=== PATIENT | male | born 1940 | race Caucasian/White ===

== ENCOUNTER 2019-12-04 12:11 | Observation (INO) | payer MEDICARE ==
[2019-12-04] MEDS ORDERED: Diltiazem 25 MG/5 ML SDV ONE (12:30)
[2019-12-04] MEDS ORDERED: Amiodarone 150 MG/3 ML SDV ONE (12:32)
[2019-12-04] MEDS ORDERED: Amiodarone 150 MG/3 ML SDV IVPUSH ONE (12:36)
[2019-12-04] MEDS ORDERED: Propofol 200 MG/20 ML SDV ONE (12:39)
--- NOTE | 2019-12-04 12:55 | EDM.PDOC ---
ED HPI GENERAL MEDICAL PROBLEM - General Chief Complaint: Cardiovascular Problem Stated Complaint: DIZZY SHORTNESS OF BREATH Time Seen by Provider: 12/04/19 12:15 Source of Information: Reports: Patient History Limitations: Reports: No Limitations - History of Present Illness INITIAL COMMENTS - FREE TEXT/NARRATIVE: This is an 78-year-old gentleman with a history of atrial fibrillation who presents with concerns of palpitations and fast heart rate. He has a history of A. fib and is managed on digoxin and metoprolol, reports that he took both these medications this morning. When he got up this morning he could feel that he was having some palpitations and his heart felt fast, this worsened throughout the morning while he was out golfing and he began to feel dizzy. When EMS initially arrived at his home today they found her to be in rate in the 140s, this ramped up into the 220s by time he arrived here at the hospital. The patient denies any dyspnea. He has no chest pain. He is otherwise been feeling well. - Related Data Allergies Allergy/AdvReac Type Severity Reaction Status Date / Time Sulfa (Sulfonamide Allergy Hives Verified 12/04/19 12:49 Antibiotics) Home Meds: Home Meds Cyanocobalamin (Vitamin B-12) [Cyanocobalamin Injection] 1,000 mcg IJ WEEKLY 12/04/19 [History] Digoxin 250 mg PO DAILY 12/04/19 [History] Glimepiride 2 mg PO DAILY 12/04/19 [History] Levothyroxine 100 mcg PO DAILY 12/04/19 [History] Metoprolol Succinate 100 mg PO BID 12/04/19 [History] Warfarin Sodium 4 mg PO ASDIRECTED 12/04/19 [History] lisinopriL [Lisinopril] 5 mg PO DAILY 12/04/19 [History] metFORMIN HCl [Metformin HCl] 1,000 mg PO BID 12/04/19 [History] ED ROS GENERAL - Review of Systems Review Of Systems: See Below Constitutional: Reports: No Symptoms HEENT: Reports: No Symptoms Respiratory: Reports: No Symptoms Cardiovascular: Reports: Palpitations Endocrine: Reports: No Symptoms GI/Abdominal: Reports: No Symptoms : Reports: No Symptoms Musculoskeletal: Reports: No Symptoms Skin: Reports: No Symptoms Neurological: Reports: No Symptoms Psychiatric: Reports: No Symptoms Hematologic/Lymphatic: Reports: No Symptoms Immunologic: Reports: No Symptoms ED EXAM, GENERAL - Physical Exam Exam: See Below Exam Limited By: No Limitations General Appearance: Alert, Mild Distress Ears: Normal External Exam Nose: Normal Inspection Throat/Mouth: Normal Inspection Head: Atraumatic, Normocephalic Neck: Normal Inspection Respiratory/Chest: Lungs Clear Cardiovascular: No Murmur, Tachycardia, Irregularly Irregular GI/Abdominal: Soft, Non-Tender Back Exam: Normal Inspection Extremities: Normal Inspection, No Pedal Edema Neurological: Alert, Oriented Psychiatric: Normal Affect, Normal Mood Skin Exam: Warm, Dry ED CARDIOLOGY PROCEDURES - Cardioversion Indication: Atrial Fibrillation with RVR Informed Consent Obtained: Yes Preparation: IV Access, Supplemental Oxygen, Monitor Pre-Procedure Sedation: Propofol Cardioversion Energy: 200J Sync Mode: Biphasic Number of Attempts: Other: (3 attempts: 150 j x1 followed by 200 j x2) Patient Condition Post Cardioversion: Unchanged Post Cardioversion EKG Reviewed: Yes (Persistent a-fib) Course - Vital Signs Last Recorded V/S: Last Vital Signs Temp 36.9 C 12/04/19 13:03 Pulse 99 12/04/19 13:03 Resp 12 12/04/19 13:03 BP 109/60 12/04/19 13:03 Pulse Ox 97 12/04/19 13:03 - Orders/Labs/Meds Orders: Active Orders 24 hr Category Date Time Status INR,PT,PROTHROMBIN TIME [COAG] Stat Lab 12/04/19 13:31 Ordered Amiodarone [Cordarone] 450 mg Med 12/04/19 12:45 Active Dextrose 5% in Water 241 ml IV ASDIRECTED Medication Orders Amiodarone HCl 450 mg/ (Dextrose/Water) 250 mls @ 33.333 mls/hr IV ASDIRECTED SANDY; Protocol Last Admin: 12/04/19 13:04 Dose: 1 mg/min, 33.333 mls/hr Documented by: MARIA A Labs: Laboratory Tests 12/04/19 12/04/19 Range/Units 12:52 12:52 WBC 7.1 (4.5-11.0) K/uL RBC 5.01 (4.30-5.90) M/uL Hgb 14.1 (12.0-15.0) g/dL Hct 44.0 (40.0-54.0) % MCV 88 (80-98) fL MCH 28 (27-31) pg MCHC 32 (32-36) % Plt Count 180 (150-400) K/uL Sodium 137 L (140-148) mmol/L Potassium 4.1 (3.6-5.2) mmol/L Chloride 99 L (100-108) mmol/L Carbon Dioxide 26 (21-32) mmol/L Anion Gap 16.1 H (5.0-14.0) mmol/L BUN 23 H (7-18) mg/dL Creatinine 1.1 (0.8-1.3) mg/dL Est Cr Clr Drug Dosing TNP Estimated GFR (MDRD) > 60 (>60) Glucose 177 H (74-106) mg/dL Calcium 8.4 L (8.5-10.1) mg/dL Magnesium 1.8 (1.8-2.4) mg/dL Total Bilirubin 1.0 (0.2-1.0) mg/dL AST 21 (15-37) U/L ALT 29 (12-78) U/L Alkaline Phosphatase 40 L (46-116) U/L Total Protein 6.6 (6.4-8.2) g/dL Albumin 3.6 (3.4-5.0) g/dL Globulin 3.0 (2.3-3.5) g/dL Albumin/Globulin Ratio 1.2 (1.2-2.2) Meds: Medications Generic Name Dose Route Start Last Admin Trade Name Freq PRN Reason Stop Dose Admin Amiodarone HCl 450 mg/ 250 mls @ 33.333 mls/hr 12/04/19 12:45 12/04/19 13:04 Dextrose/Water IV 1 mg/min ASDIRECTED SANDY 33.333 mls/hr Administration Protocol 1 MG/MIN Discontinued Medications Generic Name Dose Route Start Last Admin Trade Name Freq PRN Reason Stop Dose Admin Amiodarone HCl Confirm 12/04/19 12:32 12/04/19 12:43 Cordarone Administered 12/04/19 12:33 Not Given Dose 150 mg .ROUTE .STK-MED ONE Amiodarone HCl 150 mg 12/04/19 12:36 12/04/19 12:37 Cordarone IVPUSH 12/04/19 12:37 150 mg ONETIME ONE Administration Diltiazem HCl Confirm 12/04/19 12:30 12/04/19 12:43 Diltiazem Administered 12/04/19 12:31 Not Given Dose 25 mg .ROUTE .STK-MED ONE Propofol Confirm 12/04/19 12:39 Diprivan 20 Ml Administered 12/04/19 12:40 Dose 200 mg .ROUTE .STK-MED ONE - Re-Assessments/Exams Free Text/Narrative Re-Assessment/Exam: 78-year-old with history of A. fib, managed on digoxin and metoprolol, presents with concerns of rapid heart rate. Prehospital EKGs reviewed along with EKG here, rhythm is consistent with atrial fibrillation with RVR given its variable rate which had ramped up into the 220s by time the patient arrived in the ER. Given the patient was anticoagulated, and concerned that his rapid rate would degrade into an unstable rhythm, we elected to cardiovert him with the assistance of anesthesia. He underwent 3 cardioversions but this was unsuccessful in keeping him out of A. fib with RVR. Heart rate returned into the 220s, BPs were somewhat soft presumably largely due to sedation, so elected to load him with amiodarone. This successfully controlled his heart rate and they are now in the 90s. We are started on an amiodarone infusion. Basic blood work is pending to assess for electrolyte imbalance. 12/04/19 12:59 Free Text/Narrative Re-Assessment/Exam: Heart rate remains in the 80s and 90s on amiodarone infusion. Labs unremarkable. Admitted to the hospitalist for further management. 12/04/19 13:39 Departure - Departure Time of Disposition: 13:30 Disposition: Admitted As Inpatient 64 Clinical Impression: Atrial fibrillation with rapid ventricular response Referrals: Ovi Temple MD [Primary Care Provider] - Forms: ED Department Discharge Critical Care Note - Critical Care Note Total Time (mins): 33 Comments: Critical care time spent in the evaluation and treatment of rapid, life threatening arrhythmia Sepsis Event Note (ED) - Focused Exam Vital Signs: Vital Signs Temp Pulse Resp BP Pulse Ox 12/04/19 13:03 36.9 C 99 12 109/60 97 12/04/19 13:02 36.9 C 99 12 109/60 97 - My Orders Last 24 Hours: My Active Orders 12/04/19 12:45 Amiodarone [Cordarone] 450 mg Dextrose 5% in Water 241 ml IV ASDIRECTED 12/04/19 13:31 INR,PT,PROTHROMBIN TIME [COAG] Stat - Assessment/Plan Last 24 Hours: My Active Orders 12/04/19 12:45 Amiodarone [Cordarone] 450 mg Dextrose 5% in Water 241 ml IV ASDIRECTED 12/04/19 13:31 INR,PT,PROTHROMBIN TIME [COAG] Stat
--- NOTE | 2019-12-04 15:51 | PCM.HP.2 ---
H&P History of Present Illness - General Date of Service: 12/04/19 Admit Problem/Dx: Admission Diagnosis/Problem Admission Diagnosis/Problem Atrial fibrillation with rapid ventricular response Source of Information: Patient, Provider History Limitations: Reports: No Limitations - History of Present Illness Initial Comments - Free Text/Narative: CC: I was so dizzy HPI: Emmanuel presented to the emergency room by ambulance after an episode of sev ere dizziness and palpitations that started while he was golfing today. He reports that he has felt well recently with the exception that he has not been sleeping well because of occasionally restless legs at night. He has not had any recent difficulty with fevers, shortness of breath, palpitations or chest pain. No GI symptoms. He felt well when he woke up this morning. About usp through his round of golf he developed mild dizziness that built up over the next couple of holes before he was so dizzy he thought he was going to pass out. This was associated with palpitations. An ambulance was summoned and he was brought to the emergency room. Along the way he was noted to be in atrial fibrillation with rates in the 140s. In the emergency room he had rates that were higher than 200. 3 attempts were made at electrical cardioversion but these were unsuccessful. His blood pressures were on the very low side of normal following the attempt at cardioversion. The patient was then given a loading dose of amiodarone and started on an infusion with a significant improvement in his heart rate. He feels well again and does not have any palpitations. No chest pain or shortness of breath. Work-up in the emergency room has been reassuring other than the cardiac monitoring abnormalities. Labs are unremarkable. No evidence for infection or electrolyte abnormality. He will be admitted for further management of his paroxysmal atrial fibrillation. - Related Data Allergies/Adverse Reactions: Allergies Allergy/AdvReac Type Severity Reaction Status Date / Time Sulfa (Sulfonamide Allergy Hives Verified 12/04/19 12:49 Antibiotics) Home Medications: Home Meds Cyanocobalamin (Vitamin B-12) [Cyanocobalamin Injection] 1,000 mcg IJ WEEKLY 12/04/19 [History] Digoxin 250 mg PO DAILY 12/04/19 [History] Glimepiride 2 mg PO DAILY 12/04/19 [History] Levothyroxine 100 mcg PO DAILY 12/04/19 [History] Metoprolol Succinate 100 mg PO BID 12/04/19 [History] Warfarin Sodium 4 mg PO ASDIRECTED 12/04/19 [History] lisinopriL [Lisinopril] 5 mg PO DAILY 12/04/19 [History] metFORMIN HCl [Metformin HCl] 1,000 mg PO BID 12/04/19 [History] Past Medical History HEENT History: Reports: Cataract Cardiovascular History: Reports: Afib Gastrointestinal History: Reports: Cholelithiasis Musculoskeletal History: Reports: Fracture Other Musculoskeletal History: left arm fx X3 as child Endocrine/Metabolic History: Reports: Diabetes, Type II Hematologic History: Reports: B12 Deficiency - Infectious Disease History Infectious Disease History: Reports: Chicken Pox, Measles, Mumps - Past Surgical History HEENT Surgical History: Reports: Cataract Surgery GI Surgical History: Reports: Cholecystectomy Social & Family History - Family History Cardiac: Reports: Afib (mother and sisters) - Tobacco Use Smoking Status *Q: Former Smoker Years of Tobacco use: 10 Used Tobacco, but Quit: Yes Month/Year Tobacco Last Used: 01/1969 - Caffeine Use Caffeine Use: Reports: Coffee - Alcohol Use Alcohol Use History: No - Recreational Drug Use Recreational Drug Use: No H&P Review of Systems - Review of Systems: Review Of Systems: See Below Free Text/Narrative: A complete 12 point review of systems was obtained. Pertinent positives and negatives are noted in the history of present illness. All other systems were reviewed and were negative except as noted. Exam - Exam Exam: See Below - Vital Signs Vital Signs: Last Vital Signs Temp 36.9 C 12/04/19 13:03 Pulse 91 12/04/19 14:56 Resp 15 12/04/19 14:56 BP 116/65 12/04/19 14:56 Pulse Ox 97 12/04/19 14:56 - Exam Quality Assessment: No: Supplemental Oxygen General: Alert, Oriented, Cooperative. No: Mild Distress HEENT: Conjunctiva Clear, Mucosa Moist & [place] Neck: Supple, Trachea Midline. No: JVD Lungs: Clear to Auscultation, Normal Respiratory Effort Cardiovascular: Regular Rate, Irregular Rhythm. No: Systolic Murmur GI/Abdominal Exam: Normal Bowel Sounds, Soft, Non-Tender, No Distention Back Exam: Normal Inspection, Full Range of Motion Extremities: No Pedal Edema. No: Increased Warmth Peripheral Pulses: 2+: Dorsalis Pedis (L), Dorsalis Pedis (R) Skin: Warm, Dry Neuro Extensive - Mental Status: Alert, Oriented x3, Nl Response to Commands Neuro Extensive - Motor, Sensory, Reflexes: No: Dysarthria, Abnormal Motor, Tremor Psychiatric: Alert, Normal Affect - Patient Data Lab Results Last 24 hrs: Laboratory Results - last 24 hr 12/04/19 12/04/19 12/04/19 Range/Units 12:52 12:52 12:57 WBC 7.1 (4.5-11.0) K/uL RBC 5.01 (4.30-5.90) M/uL Hgb 14.1 (12.0-15.0) g/dL Hct 44.0 (40.0-54.0) % MCV 88 (80-98) fL MCH 28 (27-31) pg MCHC 32 (32-36) % Plt Count 180 (150-400) K/uL PT 23.2 H (9.5-12.0) sec INR 2.16 H (0.80-1.20) Sodium 137 L (140-148) mmol/L Potassium 4.1 (3.6-5.2) mmol/L Chloride 99 L (100-108) mmol/L Carbon Dioxide 26 (21-32) mmol/L Anion Gap 16.1 H (5.0-14.0) mmol/L BUN 23 H (7-18) mg/dL Creatinine 1.1 (0.8-1.3) mg/dL Est Cr Clr Drug Dosing TNP Estimated GFR (MDRD) > 60 (>60) Glucose 177 H (74-106) mg/dL Calcium 8.4 L (8.5-10.1) mg/dL Magnesium 1.8 (1.8-2.4) mg/dL Total Bilirubin 1.0 (0.2-1.0) mg/dL AST 21 (15-37) U/L ALT 29 (12-78) U/L Alkaline Phosphatase 40 L (46-116) U/L Total Protein 6.6 (6.4-8.2) g/dL Albumin 3.6 (3.4-5.0) g/dL Globulin 3.0 (2.3-3.5) g/dL Albumin/Globulin Ratio 1.2 (1.2-2.2) Result Diagrams: 12/04/19 12:52 12/04/19 12:52 EKG INTERPRETATION EKG Date: 12/04/19 Rhythm: A-Fib Rate (Beats/Min): 212 [place]: RAD-Right [place] Deviation P-Wave: Variable QRS: RBBB ST-T: Normal QT: Normal Comparison: Change From Previous EKG EKG Interpretation Comments: EKG image personally reviewed in the ED Sepsis Event Note - Evaluation Sepsis Screening Result: No Definite Risk - Focused Exam Vital Signs: Vital Signs Temp Pulse Resp BP Pulse Ox 12/04/19 14:56 91 15 116/65 97 12/04/19 13:03 36.9 C 99 12 109/60 97 12/04/19 13:02 36.9 C 99 12 109/60 97 *Q Meaningful Use (ADM) - VTE Risk Assess *Q Each Risk Factor Represents 1 Point: None Total Score 1 Point Risk Factors: 0 Each Risk Factor Represents 2 Points: None Total Score 2 Point Risk Factors: 0 Each Risk Factor Represents 3 Points: Age 75 Years or Greater Total Score 3 Point Risk Factors: 3 Each Risk Factor Represents 5 Points: None Total Score 5 Point Risk Factors: 0 Venous Thromboembolism Risk Factor Score *Q: 3 - Problem List (1) Atrial fibrillation with rapid ventricular response SNOMED Code(s): 589840524494016 ICD Code: I48.91 - UNSPECIFIED ATRIAL FIBRILLATION Status: Acute Current Visit: Yes (2) Diabetes mellitus type II, controlled SNOMED Code(s): 89485578, 459297204 ICD Code: E11.9 - TYPE 2 DIABETES MELLITUS WITHOUT COMPLICATIONS Status: Chronic Current Visit: Yes Qualifiers: Diabetes mellitus custodial insulin use: without custodial use Diabetes mellitus complication status: without complication Qualified Code(s): E11.9 - Type 2 diabetes mellitus without complications (3) Hypothyroidism (acquired) SNOMED Code(s): 797186308 ICD Code: E03.9 - HYPOTHYROIDISM, UNSPECIFIED Status: Chronic Current Visit: Yes Problem List Initiated/Reviewed/Updated: Yes Orders Last 24hrs: Active Orders 24 hr Category Date Time Status Patient Status Manage Transfer [TRANSFER] Routine ADT 12/04/19 15:41 Ordered T4 FREE [CHEM] Stat Lab 12/04/19 12:42 Received TSH ULTRASENSITIVE [CHEM] Urgent Lab 12/04/19 12:42 Received Amiodarone [Cordarone] 450 mg Med 12/04/19 12:45 Active Dextrose 5% in Water 241 ml IV ASDIRECTED Resuscitation Status Routine Resus Stat 12/04/19 15:43 Ordered Medication Orders Amiodarone HCl 450 mg/ (Dextrose/Water) 250 mls @ 33.333 mls/hr IV ASDIRECTED [facility]; Protocol Last Admin: 12/04/19 13:04 Dose: 1 mg/min, 33.333 mls/hr Documented by: MARIA A Assessment/Plan Comment:: ASSESSMENT AND PLAN - Paroxysmal atrial fibrillation with rapid ventricular response-rates were higher than 200 at times in the emergency room. Failed electrical cardioversion. Improving with amiodarone. No obvious trigger. No evidence for ischemia, electrolyte abnormality or infection. Thyroid studies are acceptable. INR is therapeutic. -Continue amiodarone loading -Transition to oral amiodarone tomorrow -Cardiac monitoring -Echocardiogram (inpatient versus outpatient) -Continue anticoagulation Acquired hypothyroidism-TSH very slightly elevated and free T4 is at the upper limit of normal. No obvious need to make any changes at this point. -Continue supplementation Type 2 diabetes mellitus-sugars have been well controlled. -Continue home medications Maintenance issues - - DVT prophylaxis -warfarin - GI prophylaxis -not indicated - Nutrition -diabetic - Enciso catheter -not indicated CODE STATUS -full code Admission justification -patient will be referred observation status for management of paroxysmal atrial fibrillation Disposition -I would anticipate discharge home after the hospital stay Primary care physician -Dr Ovi Powell M.D. - Mortality Measure Prognosis:: Good
[2019-12-04] MEDS ORDERED: Sodium Chloride 0.9% 1,000 ML IV SCH (16:18)
[2019-12-04] MEDS ORDERED: Ondansetron 4 MG/2 ML SDV IV PRN (16:18)
[2019-12-04] MEDS ORDERED: Melatonin 3 MG Tab PO PRN (16:18)
[2019-12-04] MEDS ORDERED: Magnesium Hydroxide 400 MG/5 ML Susp 30 ML Cup PO PRN (16:18)
[2019-12-04] MEDS ORDERED: Acetaminophen 325 MG Tab PO PRN (16:18)
[2019-12-04] MEDS ORDERED: Ondansetron 4 MG Tab.DIS PO PRN (16:18)
[2019-12-04] MEDS: LISINOPRIL 5 MG PO SCH (17:42)
[2019-12-04] MEDS: WARFARIN SODIUM 4 MG PO SCH ×2 (17:43→17:48)
[2019-12-04] MEDS: METFORMIN HCL 1000 MG PO SCH (17:44)
[2019-12-04] MEDS: GLIMEPIRIDE 2 MG PO SCH (17:44)
[2019-12-04] MEDS ORDERED: WARFARIN SODIUM 4 MG PO ONE (18:45)
[2019-12-04] MEDS ORDERED: [UNRECOGNIZED DRUG - REMARK] IV ONE (19:00)
[2019-12-04] MEDS: METOPROLOL SUCCINATE 100 MG PO SCH (21:02)
[2019-12-05] MEDS ORDERED: LEVOTHYROXINE 100 MCG PO SCH (07:30)
[2019-12-05] MEDS: GLIMEPIRIDE 2 MG PO SCH (09:34)
[2019-12-05] MEDS: METFORMIN HCL 1000 MG PO SCH (09:34)
[2019-12-05] MEDS: LISINOPRIL 5 MG PO SCH (09:35)
[2019-12-05] MEDS: METOPROLOL SUCCINATE 100 MG PO SCH (09:35)
--- NOTE | 2019-12-05 12:27 | PCM.DCSUM1 ---
Discharge Summary - Hospital Course Brief History: 79-year-old male with history of well-controlled type 2 diabetes mellitus and one episode of paroxysmal atrial fibrillation with chronic anticoagulation who presented with palpitations and dizziness. He was admitted for medical management of rapid atrial fibrillation. Diagnosis: Stroke: No - Discharge Data Discharge Date: 12/05/19 Discharge Disposition: Home, Self-Care 01 Condition: Good - Referral to Home Health Primary Care Physician: Ovi Temple MD - Discharge Diagnosis/Problem(s) (1) Atrial fibrillation with rapid ventricular response SNOMED Code(s): 016368642379669 ICD Code: I48.91 - UNSPECIFIED ATRIAL FIBRILLATION Status: Acute Current Visit: Yes (2) Diabetes mellitus type II, controlled SNOMED Code(s): 76274432, 344054231 ICD Code: E11.9 - TYPE 2 DIABETES MELLITUS WITHOUT COMPLICATIONS Status: Chronic Current Visit: Yes Qualifiers: Diabetes mellitus intermission coordinator insulin use: without mcc use Diabetes mellitus complication status: without complication Qualified Code(s): E11.9 - Type 2 diabetes mellitus without complications (3) Hypothyroidism (acquired) SNOMED Code(s): 712116983 ICD Code: E03.9 - HYPOTHYROIDISM, UNSPECIFIED Status: Chronic Current Visit: Yes - Patient Summary/Data Hospital Course: Emmanuel presented to the emergency room with dizziness and palpitations. Cardiac monitoring revealed that he was in atrial fibrillation and initially had heart rates in the 140s but these did rise to more than 200. He was fully anticoagulated on arrival. Laboratory studies were reassuring and his electrolytes were normal. There is no evidence to support infection. Electrical cardioversion was attempted x3 in the emergency room. He did initially convert but then returned to atrial fibrillation fairly quickly. He was started on amiodarone to help with his rate that remained significantly elevated because his blood pressure was too low to initiate diltiazem. He was admitted to the intensive care unit for further management. He responded very well to the amiodarone with a dramatic improvement in his rate. Heart rate has been in the 60s and 70s overnight following initiation of the amiodarone but he does remain in atrial fibrillation. Follow-up laboratory studies were unremarkable. We did check thyroid studies which were acceptable. There was no evidence for volume overload or ischemia. We did discuss the utility of an echocardiogram but unfortunately this is not available at this time. He has tolerated the amiodarone and feels back to his usual self. The plan is for him to be on oral amiodarone for at least a couple of weeks. He has completed his 24-hour loading dose. We are going to set him up for an outpatient echocardiogram and have him follow-up with primary care after the echocardiogram is complete. He will continue his usual home medications including warfarin. - Patient Instructions Diet: Usual Diet as Tolerated Activity: As Tolerated, Rest and Relax Today Driving: May Drive Today Showering/Bathing: May Shower Other/Special Instructions: 1. You were in the hospital for observation after an episode of atrial fibrillation with a rapid ventricular response. We performed multiple laboratory studies and did not determine an exact cause. Your condition has been improving with amiodarone therapy. I do recommend that we continue this for the next 2 weeks. You should take 200 mg twice daily for 28 doses. Your first dose outside of the hospital will be due tonight. This medication will be reevaluated to see if it needs to be continued longer than 2 weeks or if it can be stopped at that time. I also recommend that we complete an echocardiogram to look at the structure and function of your heart. An order has been sent to the radiology area and they will schedule this in the near future. 2. Continue your usual home medications as previously prescribed. 3. Follow-up with Dr Ovi Temple in approximately 1 week - Discharge Plan *PRESCRIPTION DRUG MONITORING PROGRAM REVIEWED*: Not Applicable *COPY OF PRESCRIPTION DRUG MONITORING REPORT IN PATIENT PATTY: Not Applicable Prescriptions/Med Rec: Amiodarone [Cordarone] 200 mg PO BID #28 tab Home Medications: Home Meds Cyanocobalamin (Vitamin B-12) [Cyanocobalamin Injection] 1,000 mcg IJ WEEKLY 12/04/19 [History] Digoxin 250 mcg PO DAILY 12/04/19 [History] Glimepiride 2 mg PO DAILY 12/04/19 [History] Levothyroxine 100 mcg PO DAILY 12/04/19 [History] Metoprolol Succinate 100 mg PO BID 12/04/19 [History] Warfarin Sodium 4 mg PO ASDIRECTED 12/04/19 [History] lisinopriL [Lisinopril] 2.5 mg PO DAILY 12/04/19 [History] metFORMIN HCl [Metformin HCl] 1,000 mg PO BID 12/04/19 [History] Amiodarone [Cordarone] 200 mg PO BID #28 tab 12/05/19 [Rx] Oxygen Therapy Mode: Room Air Patient Handouts: Atrial Fibrillation, Amiodarone tablets Referrals: Ovi Temple MD [Primary Care Provider] - (1 week - f/u hospital stay for paroxysmal atrial fibrillation, echo results) - Discharge Summary/Plan Comment DC Time >30 min.: No - Patient Data Vitals - Most Recent: Last Vital Signs Temp 36.6 C 12/05/19 12:00 Pulse 63 12/05/19 06:00 Resp 12 12/05/19 12:00 BP 116/64 12/05/19 12:00 Pulse Ox 95 12/05/19 11:00 Weight - Most Recent: 79.832 kg I&O - Last 24 hours: Intake & Output 12/04/19 12/05/19 12/05/19 22:59 06:59 14:59 Output Total 900 400 Balance -900 -400 Lab Results - Last 24 hrs: Laboratory Results - last 24 hr 12/04/19 12/04/19 12/04/19 Range/Units 12:42 12:52 12:52 WBC 7.1 (4.5-11.0) K/uL RBC 5.01 (4.30-5.90) M/uL Hgb 14.1 (12.0-15.0) g/dL Hct 44.0 (40.0-54.0) % MCV 88 (80-98) fL MCH 28 (27-31) pg MCHC 32 (32-36) % Plt Count 180 (150-400) K/uL PT (9.5-12.0) sec INR (0.80-1.20) Sodium 137 L (140-148) mmol/L Potassium 4.1 (3.6-5.2) mmol/L Chloride 99 L (100-108) mmol/L Carbon Dioxide 26 (21-32) mmol/L Anion Gap 16.1 H (5.0-14.0) mmol/L BUN 23 H (7-18) mg/dL Creatinine 1.1 (0.8-1.3) mg/dL Est Cr Clr Drug Dosing TNP Estimated GFR (MDRD) > 60 (>60) Glucose 177 H (74-106) mg/dL Calcium 8.4 L (8.5-10.1) mg/dL Magnesium 1.8 (1.8-2.4) mg/dL Iron (65-175) ug/dL TIBC (250-450) ug/dl % Saturation (20-55) % Ferritin (8-388) ng/ml Total Bilirubin 1.0 (0.2-1.0) mg/dL AST 21 (15-37) U/L ALT 29 (12-78) U/L Alkaline Phosphatase 40 L (46-116) U/L Total Protein 6.6 (6.4-8.2) g/dL Albumin 3.6 (3.4-5.0) g/dL Globulin 3.0 (2.3-3.5) g/dL Albumin/Globulin Ratio 1.2 (1.2-2.2) Free T4 1.47 H (0.76-1.46) ng/dL TSH, Ultra Sensitive 3.085 (0.358-3.740) uIU/mL Digoxin (0.90-2.00) ng/mL 12/04/19 12/05/19 12/05/19 Range/Units 12:57 04:30 04:30 WBC 7.5 (4.5-11.0) K/uL RBC 4.73 (4.30-5.90) M/uL Hgb 13.4 (12.0-15.0) g/dL Hct 42.3 (40.0-54.0) % MCV 89 (80-98) fL MCH 28 (27-31) pg MCHC 32 (32-36) % Plt Count 181 (150-400) K/uL PT 23.2 H 18.5 H (9.5-12.0) sec INR 2.16 H 1.72 H (0.80-1.20) Sodium (140-148) mmol/L Potassium (3.6-5.2) mmol/L Chloride (100-108) mmol/L Carbon Dioxide (21-32) mmol/L Anion Gap (5.0-14.0) mmol/L BUN (7-18) mg/dL Creatinine (0.8-1.3) mg/dL Est Cr Clr Drug Dosing Estimated GFR (MDRD) (>60) Glucose (74-106) mg/dL Calcium (8.5-10.1) mg/dL Magnesium (1.8-2.4) mg/dL Iron (65-175) ug/dL TIBC (250-450) ug/dl % Saturation (20-55) % Ferritin (8-388) ng/ml Total Bilirubin (0.2-1.0) mg/dL AST (15-37) U/L ALT (12-78) U/L Alkaline Phosphatase (46-116) U/L Total Protein (6.4-8.2) g/dL Albumin (3.4-5.0) g/dL Globulin (2.3-3.5) g/dL Albumin/Globulin Ratio (1.2-2.2) Free T4 (0.76-1.46) ng/dL TSH, Ultra Sensitive (0.358-3.740) uIU/mL Digoxin (0.90-2.00) ng/mL 12/05/19 12/05/19 Range/Units 04:30 04:30 WBC (4.5-11.0) K/uL RBC (4.30-5.90) M/uL Hgb (12.0-15.0) g/dL Hct (40.0-54.0) % MCV (80-98) fL MCH (27-31) pg MCHC (32-36) % Plt Count (150-400) K/uL PT (9.5-12.0) sec INR (0.80-1.20) Sodium 141 (140-148) mmol/L Potassium 4.1 (3.6-5.2) mmol/L Chloride 104 (100-108) mmol/L Carbon Dioxide 27 (21-32) mmol/L Anion Gap 10.4 (5.0-14.0) mmol/L BUN 19 H (7-18) mg/dL Creatinine 1.2 (0.8-1.3) mg/dL Est Cr Clr Drug Dosing 51.42 Estimated GFR (MDRD) 58 L (>60) Glucose 139 H (74-106) mg/dL Calcium 8.5 (8.5-10.1) mg/dL Magnesium (1.8-2.4) mg/dL Iron 50 L (65-175) ug/dL TIBC 225 L (250-450) ug/dl % Saturation 22 (20-55) % Ferritin 251 (8-388) ng/ml Total Bilirubin (0.2-1.0) mg/dL AST (15-37) U/L ALT (12-78) U/L Alkaline Phosphatase (46-116) U/L Total Protein (6.4-8.2) g/dL Albumin (3.4-5.0) g/dL Globulin (2.3-3.5) g/dL Albumin/Globulin Ratio (1.2-2.2) Free T4 (0.76-1.46) ng/dL TSH, Ultra Sensitive (0.358-3.740) uIU/mL Digoxin 1.30 (0.90-2.00) ng/mL Med Orders - Current: Current Medications Acetaminophen (Tylenol) 650 mg PO Q4H PRN PRN Reason: Pain (Mild 1-3)/fever Glimepiride (Amaryl) 2 mg PO WITHBREAKFAST [facility] Last Admin: 12/05/19 09:34 Dose: 2 mg Documented by: Amiodarone HCl 450 mg/ (Dextrose/Water) 250 mls @ 33.333 mls/hr IV ASDIRECTED [facility]; Protocol Last Admin: 12/04/19 21:05 Dose: 0.5 mg/min, 16.7 mls/hr Documented by: Sodium Chloride (Normal Saline) 1,000 mls @ 25 mls/hr IV ASDIRECTED [facility] Levothyroxine Sodium (Synthroid) 100 mcg PO ACBREAKFAST [facility] Last Admin: 12/05/19 09:33 Dose: 100 mcg Documented by: Lisinopril (Prinivil) 2.5 mg PO DAILY [facility] Last Admin: 12/05/19 09:35 Dose: Not Given Documented by: Magnesium Hydroxide (Milk Of Magnesia) 30 ml PO Q12H PRN PRN Reason: Constipation Melatonin (Melatonin) 9 mg PO BEDTIME PRN PRN Reason: Sleep Digoxin 250 Mcg *Pom (*) 1 each PO DAILY@1300 [facility] Metformin Hcl 1,000 (Mg *Pom*) 1,000 mg PO BIDMEALS [facility] Last Admin: 12/05/19 09:34 Dose: 1,000 mg Documented by: Metoprolol Succinate (Er 100 Mg *Pom*) 100 mg PO BID [facility] Last Admin: 12/05/19 09:35 Dose: 100 mg Documented by: Warfarin Sodium 4 Mg (*Pom*) 0 mg PO DAILY@1300 [facility] Ondansetron HCl (Zofran) 4 mg IV Q6H PRN PRN Reason: Nausea/Vomiting Ondansetron HCl (Zofran Odt) 4 mg PO Q6H PRN PRN Reason: Nausea able to take PO Senna/Docusate Sodium (Senna Plus) 1 tab PO BID PRN PRN Reason: Constipation Discontinued Medications Amiodarone HCl (Cordarone) Confirm Administered Dose 150 mg .ROUTE .STK-MED ONE Stop: 12/04/19 12:33 Last Admin: 12/04/19 12:43 Dose: Not Given Documented by: Amiodarone HCl (Cordarone) 150 mg IVPUSH ONETIME ONE Stop: 12/04/19 12:37 Last Admin: 12/04/19 12:37 Dose: 150 mg Documented by: Diltiazem HCl (Diltiazem) Confirm Administered Dose 25 mg .ROUTE .STK-MED ONE Stop: 12/04/19 12:31 Last Admin: 12/04/19 12:43 Dose: Not Given Documented by: Warfarin Sodium 4 Mg (*Pom*) 4 mg PO DAILY@1300 [facility] Last Admin: 12/04/19 17:48 Dose: 4 mg Documented by: Decrease Amiodarone (Drip) 1 each IV ONETIME ONE Stop: 12/04/19 19:01 Last Admin: 12/04/19 19:45 Dose: 1 each Documented by: Warfarin Sodium 4 Mg (*Pom*) 4 mg PO ONETIME ONE Stop: 12/04/19 18:46 Last Admin: 12/04/19 18:41 Dose: 4 mg Documented by: Propofol (Diprivan 20 Ml) Confirm Administered Dose 200 mg .ROUTE .STK-MED ONE Stop: 12/04/19 12:40
[2019-12-05] MEDS ORDERED: WARFARIN SODIUM 4 MG PO SCH (13:00)
[2019-12-05] MEDS ORDERED: DIGOXIN 250 MCG PO SCH (13:00)
== END 2019-12-05 12:55 | disposition home or self-care (01) ==
LOC: JP.ED 12:11 → JP.ICU 15:41
PROVIDERS: ADMIT Internal Medicine; ATTEND Internal Medicine
DX: I48.0 Paroxysmal atrial fibrillation (principal); E11.9 Type 2 diabetes mellitus without complications; E03.9 Hypothyroidism, unspecified; Z87.891 Personal history of nicotine dependence; Z88.2 Allergy status to sulfonamides; Z79.899 Other long term (current) drug therapy; Z79.01 Long term (current) use of anticoagulants; Z79.890 Hormone replacement therapy; Z79.84 Long term (current) use of oral hypoglycemic drugs
CPT/HCPCS: 36415; 80048; 80053; 80162; 82728; 83550; 83735; 84439; 84443; 85027; 85610; A9270; J0282; J2704; J7060; 93010

== ENCOUNTER 2021-12-20 20:28 | Emergency (ER) | payer MEDICARE ==
[2021-12-20] MEDS ORDERED: Digoxin 500 MCG/2 ML Amp IVPUSH ONE (20:52)
[2021-12-20 21:13] LABS: ESTIMATED GFR 46 mL/min (>60)
[2021-12-20 21:14] LABS: TROPONIN I HIGH SENSITIVITY 442.6 pg/mL (<=60.3)
[2021-12-20] MEDS ORDERED: Amiodarone 150 MG/3 ML SDV IVPUSH ONE (21:24)
[2021-12-21] MEDS ORDERED: Apixaban 5 MG Tab PO ONE (01:06)
[2021-12-21] MEDS ORDERED: Metoprolol Succinate 50 MG Tab.ER PO ONE (01:06)
== END 2021-12-21 01:18 ==
LOC: JP.ED 20:28
DX: I48.91 Unspecified atrial fibrillation (principal); I44.7 Left bundle-branch block, unspecified; R79.89 Other specified abnormal findings of blood chemistry; E03.9 Hypothyroidism, unspecified; E11.9 Type 2 diabetes mellitus without complications; Z88.2 Allergy status to sulfonamides; Z79.899 Other long term (current) drug therapy; Z79.84 Long term (current) use of oral hypoglycemic drugs; Z90.49 Acquired absence of other specified parts of digestive tract; Z79.01 Long term (current) use of anticoagulants; Z20.822 Contact with and (suspected) exposure to COVID-19
CPT/HCPCS: 36415; 80053; 84439; 84443; 84484; 85025; 85610; 85730; 93005; 96374; 96375; 99285; A9270; J0282; J1160; U0002

== ENCOUNTER 2023-09-12 05:55 | Day surgery (SDC) | payer MEDICARE ==
[2023-09-12 06:20] LABS: HEMOGLOBIN 14.6 g/dL (12.9-16.9); MEAN CORPUSCULAR HEMOGLOBIN 29.6 pg (31.6-35.5); MEAN CORPUSCULAR HGB CONC 33.2 g/dL (31.6-35.5); MEAN CORPUSCULAR VOLUME 89.2 fL (81.4-99.0); RED BLOOD CELL COUNT 4.93 M/uL (4.14-5.76); WHITE BLOOD CELL COUNT,WBC 7.4 K/uL (3.2-11.0)
[2023-09-12 06:42] LABS: A/G RATIO 1.1 (1.2-2.2); ALANINE AMINOTRANSFERASE,ALT 37 U/L (12-78); ALBUMIN 4.3 g/dL (3.4-5.0); ALKALINE PHOSPHATASE 47 U/L (46-116); ASPARTATE AMNIOTRANSFERASE,AST 23 U/L (15-37); BLOOD UREA NITROGEN,BUN 24 mg/dL (7-18); CALCIUM 9.2 mg/dL (8.5-10.1); CARBON DIOXIDE,CO2 27 mmol/L (21-32); CHLORIDE,CL 99 mmol/L (100-108); CREATININE 1.5 mg/dL (0.8-1.3); EST CRCL DRUG DOSING (CG) 39.64 mL/min; ESTIMATED GFR 46 mL/min (>60); GLUCOSE RANDOM 184 mg/dL (74-106); POTASSIUM,K 4.5 mmol/L (3.6-5.2); PROTEIN TOTAL,TP 8.2 g/dL (6.4-8.2); SODIUM,NA 137 mmol/L (140-148)
[2023-09-12 06:46] LABS: ANION GAP 15.5 mmol/L (5.0-14.0)
[2023-09-12] MEDS: Nozin Nasal Sanitizer NASBOTH SCH ×2 (06:52→21:49)
[2023-09-12] MEDS: Lactated Ringers 1,000 ML IV SCH (06:52)
[2023-09-12] MEDS ORDERED: Bupivacaine 0.5% 50 ML MDV ONE (07:06)
[2023-09-12] MEDS ORDERED: Midazolam 1 MG/ML 2 ML SDV ONE (07:34)
[2023-09-12] MEDS ORDERED: Propofol 200 MG/20 ML SDV ONE (07:34)
[2023-09-12] MEDS ORDERED: fentaNYL 100 MCG/2 ML SDV ONE (07:34)
[2023-09-12] MEDS: ceFAZolin 2 GM in Premix Bag 1 BAG IV ONE (07:34)
[2023-09-12] MEDS ORDERED: Magnesium Hydroxide 400 MG/5 ML Susp 30 ML Cup PO PRN (07:44)
[2023-09-12] MEDS ORDERED: Morphine 2 MG/ML SYRINGE IV PRN (07:44)
[2023-09-12] MEDS ORDERED: Ondansetron 4 MG/2 ML SDV IVPUSH PRN (07:44)
[2023-09-12] MEDS ORDERED: Docusate Sodium 100 MG Cap PO PRN (07:44)
[2023-09-12] MEDS ORDERED: oxyCODONE 5 MG Tab PO PRN (07:44)
[2023-09-12] MEDS ORDERED: Furosemide 40 MG Tab PO PRN (07:48)
[2023-09-12] MEDS ORDERED: Lactated Ringers 1,000 ML ONE (08:12)
[2023-09-12] MEDS ORDERED: ePHEDrine 50 MG/ML SDV ONE (08:22)
[2023-09-12] MEDS ORDERED: Sodium Chloride 0.9% 10 ML ONE (08:22)
[2023-09-12] MEDS ORDERED: Apixaban 5 MG Tab PO SCH (09:00)
[2023-09-12] MEDS ORDERED: Aspirin 81 MG Tab.Chew PO SCH (09:00)
[2023-09-12] MEDS: Sodium Chloride 0.9% 1,000 ML IV SCH (10:21)
[2023-09-12] MEDS: Amiodarone 200 MG Tab PO SCH (11:00)
[2023-09-12] MEDS: Rosuvastatin 5 MG Tab PO SCH (11:01)
[2023-09-12] MEDS: Metoprolol Succinate 50 MG Tab.ER PO SCH (11:02)
[2023-09-12] MEDS: Lisinopril 20 MG Tab PO SCH (11:02)
[2023-09-12] MEDS: Cyanocobalamin (Vitamin B12) 1,000 MCG/ML SDV IM SCH (11:03)
[2023-09-12] MEDS: Levothyroxine 100 MCG Tab PO SCH (11:07)
[2023-09-12] MEDS: Acetaminophen 325 MG Tab PO SCH (11:08)
[2023-09-12] MEDS: Levothyroxine 25 MCG Tab PO SCH (11:08)
[2023-09-12] MEDS: Digoxin 125 MCG Tab PO SCH (13:44)
[2023-09-12] MEDS: ceFAZolin 2 GM in Premix Bag 1 BAG IV SCH (13:48)
[2023-09-12] MEDS: Ketorolac 15 MG/ML SDV IVPUSH PRN (14:51)
[2023-09-12] MEDS: metFORMIN 500 MG Tab PO SCH (17:09)
[2023-09-12] MEDS: oxyCODONE 5 MG Tab PO PRN (21:49)
[2023-09-13 05:14] LABS: HEMATOCRIT 31.8 % (38.4-49.7); HEMOGLOBIN 10.7 g/dL (12.9-16.9); MEAN CORPUSCULAR HEMOGLOBIN 29.3 pg (31.6-35.5); MEAN CORPUSCULAR HGB CONC 33.6 g/dL (31.6-35.5); MEAN CORPUSCULAR VOLUME 87.1 fL (81.4-99.0); RED BLOOD CELL COUNT 3.65 M/uL (4.14-5.76); WHITE BLOOD CELL COUNT,WBC 4.9 K/uL (3.2-11.0)
[2023-09-13] MEDS: Glimepiride 2 MG Tab PO SCH (09:00)
[2023-09-13] MEDS: Aspirin 81 MG Tab.Chew PO SCH (09:02)
[2023-09-13] MEDS: Apixaban 5 MG Tab PO SCH (09:02)
== END 2023-09-13 13:45 | disposition home or self-care (01) ==
LOC: JP.SDS 05:55 → JP.MS 07:45 → JP.SDS 09-13 13:45
PROVIDERS: ATTEND Specialist
DX: M16.12 Unilateral primary osteoarthritis, left hip (principal); I25.10 Atherosclerotic heart disease of native coronary artery without angina pectoris; I10 Essential (primary) hypertension; I48.91 Unspecified atrial fibrillation; E11.9 Type 2 diabetes mellitus without complications; Z95.810 Presence of automatic (implantable) cardiac defibrillator; Z88.2 Allergy status to sulfonamides; Z79.01 Long term (current) use of anticoagulants; Z79.84 Long term (current) use of oral hypoglycemic drugs; Z79.899 Other long term (current) drug therapy; Z79.82 Long term (current) use of aspirin
CPT/HCPCS: 01214; 27130; 36415; 72170; 80053; 82947; 85027; 97110; 97116; 97161; 97165; 97530; 97535; A9270; C1713; C1776; J0690; J1885; J2250; J2704; J3010; J3490; J7030; J7120; J0665

== ENCOUNTER 2024-10-08 07:39 | Emergency (ER) | payer MEDICARE ==
[2024-10-08 08:31] LABS: BASOPHILS ABSOLUTE AUTO 0.13 K/uL (0.00-0.10); BASOPHILS PERCENT AUTO 2.1 % (0.1-1.3); EOSINOPHILS ABSOLUTE AUTO 0.37 K/uL (0.00-0.40); HEMATOCRIT 41.9 % (38.4-49.7); HEMOGLOBIN 13.7 g/dL (12.9-16.9); IMMATURE GRAN PERCENT AUTO 0.3 % (0.0-0.7); LYMPHOCYTES ABSOLUTE AUTO 1.12 K/uL (0.8-3.3); LYMPHOCYTES PERCENT AUTO 18.3 % (11.4-47.7); MEAN CORPUSCULAR HEMOGLOBIN 29.8 pg (31.6-35.5); MEAN CORPUSCULAR HGB CONC 32.7 g/dL (31.6-35.5); MEAN CORPUSCULAR VOLUME 91.3 fL (81.4-99.0); MONOCYTES ABSOLUTE AUTO 0.42 K/uL (0.20-0.90); MONOCYTES PERCENT AUTO 6.9 % (3.3-12.6); NEUTROPHILS ABSOLUTE AUTO 4.07 K/uL (1.0-7.6); NEUTROPHILS PERCENT AUTO 66.4 % (40.0-78.1); PLATELET COUNT,PLT 186 K/uL (130-375); RED BLOOD CELL COUNT 4.59 M/uL (4.14-5.76); WHITE BLOOD CELL COUNT,WBC 6.1 K/uL (3.2-11.0)
[2024-10-08 08:39] LABS: IMMATURE GRAN ABSOLUTE AUTO 0.02 K/uL (0.00-0.23)
[2024-10-08 08:45] LABS: BLOOD UREA NITROGEN,BUN 24 mg/dL (7-18); CARBON DIOXIDE,CO2 27 mmol/L (21-32); CHLORIDE,CL 102 mmol/L (100-108); CREATININE 1.2 mg/dL (0.8-1.3); EST CRCL DRUG DOSING (CG) 47.93 mL/min; ESTIMATED GFR 59 mL/min (>60); GLUCOSE RANDOM 211 mg/dL (74-106); POTASSIUM,K 4.6 mmol/L (3.6-5.2); SODIUM,NA 139 mmol/L (140-148)
[2024-10-08 08:52] LABS: ANION GAP 14.6 mmol/L (5.0-14.0); C-REACTIVE PROTEIN < 0.50 mg/dL (<0.50)
[2024-10-08 09:24] LABS: LYME AB IgG Negative (Negative); LYME AB IgM Equivocal (Negative)
[2024-10-10 15:18] LABS: B. BURGDORFERI IGG IMMUNOBLOT Negative (Negative); B. BURGDORFERI IGM IMMUNOBLOT Negative (Negative)
== END 2024-10-08 09:55 | disposition home or self-care (01) ==
LOC: JP.ED 07:39
DX: M79.605 Pain in left leg (principal); A69.20 Lyme disease, unspecified; I10 Essential (primary) hypertension; M19.90 Unspecified osteoarthritis, unspecified site; E11.9 Type 2 diabetes mellitus without complications; E03.9 Hypothyroidism, unspecified; Z88.2 Allergy status to sulfonamides; Z79.82 Long term (current) use of aspirin; Z79.890 Hormone replacement therapy; Z79.84 Long term (current) use of oral hypoglycemic drugs; Z79.899 Other long term (current) drug therapy; Z90.49 Acquired absence of other specified parts of digestive tract; Z86.16 Personal history of COVID-19
CPT/HCPCS: 36415; 80048; 85025; 86140; 86617; 86618; 99283; 99284